=== PATIENT | female | born 1990 | race Caucasian/White ===

== ENCOUNTER → 2017-11-16 09:13 | Outpatient (CLI) | payer OTHER, MEDICAID, SELFPAY ==
--- NOTE | 2017-11-16 | DI.US.S_ITS ---
PROCEDURE: US THYROID INDICATIONS: TYROIDISIAM TECHNIQUE: Real-time scanning was performed of the thyroid gland, with image documentation. COMPARISON: None. FINDINGS: Right: Thyroid lobe measures 8.0 x 2.2 x 2.3 cm, and is diffusely heterogeneous in echotexture. Left: Thyroid lobe measures 5.1 x 1.8 x 2.1 cm, and is diffusely heterogeneous in echotexture. Isthmus: 3 mm thick. IMPRESSION: Diffusely heterogeneous thyroid parenchyma bilaterally, consistent with goiter and/or thyroiditis. No focal superimposed mass. Dictated by: Basilio Lopez M.D. on 11/16/2017 at 10:52 Approved by: Basilio Lopez M.D. on 11/16/2017 at 10:53
== END ==
PROVIDERS: PCP Obstetrics & Gynecology; Visit Provider Family Medicine
DX: E03.9 Hypothyroidism, unspecified (principal)
CPT/HCPCS: 76536

== ENCOUNTER → 2018-02-27 13:49 | Outpatient (CLI) | payer OTHER, MEDICAID, SELFPAY ==
[2018-02-27 15:27] LABS: Free T3, Triiodothyronine Free 2.45 pg/mL (2.77-5.27); Free T4, Direct Thyroxine 0.51 ng/dL (0.78-2.19)
== END ==
PROVIDERS: Visit Provider Family Medicine
DX: E04.9 Nontoxic goiter, unspecified (principal); E06.9 Thyroiditis, unspecified
CPT/HCPCS: 36415; 84439; 84443; 84481

== ENCOUNTER → 2018-10-16 08:54 | Outpatient (CLI) | payer OTHER, MEDICAID, SELFPAY ==
--- NOTE | 2018-10-16 | DI.RAD.S_ITS ---
PROCEDURE: XR THORACIC SPINE 3V INDICATIONS: SPINE PAIN, TINGLING IN EXTREMITIES TECHNIQUE: 3 views of the thoracic spine were acquired. COMPARISON: [facility], CR, XR CERVICAL SPINE 2V OR 3V, 10/16/2018, 8:59. FINDINGS: Bones: No fractures or dislocations. No suspicious bony lesions. 12 pairs of ribs are noted, and appear intact where visualized. Soft tissues: No paravertebral stripe thickening. IMPRESSION: Normal thoracic spine radiograph. Dictated by: Phillip Thorne M.D. on 10/16/2018 at 10:07 Approved by: Phillip Thorne M.D. on 10/16/2018 at 10:09
--- NOTE | 2018-10-16 | DI.RAD.S_ITS ---
PROCEDURE: XR CERVICAL SPINE 2V OR 3V INDICATIONS: SPINE PAIN, TINGLING IN EXTREMITIES TECHNIQUE: 3 view(s) of the cervical spine were acquired. COMPARISON: [facility], , MRI HEAD W/O CONTRAST, 03/31/2006, 13:28. FINDINGS: Bones: No fractures or dislocations to the T1 level. C2 and C3 is generally fused. The lateral masses of C1 appear intact on the odontoid view. No suspicious bony lesions. Soft tissues: No prevertebral soft tissue swelling. IMPRESSION: Congenital fusion of C2 and C3. Dictated by: Phillip Thorne M.D. on 10/16/2018 at 10:03 Approved by: Phillip Thorne M.D. on 10/16/2018 at 10:07
== END ==
PROVIDERS: PCP Family Medicine; Visit Provider Family Medicine
DX: M54.6 Pain in thoracic spine (principal); M54.2 Cervicalgia; M43.22 Fusion of spine, cervical region; R20.2 Paresthesia of skin
CPT/HCPCS: 72040; 72072